=== PATIENT | male | born 1970 | race Hispanic/Latino ===

== ENCOUNTER 2021-08-07 08:24 | Emergency (ER) | payer OTHER ==
[~2021-08-07] VITALS: Ht 177.8 cm; Wt 90.7 kg
[2021-08-07] MEDS ORDERED: CASIRIVIMAB/IMDEVIMAB 10 ML in SODIUM CHLORIDE 0.9% 100 ML IV ONE (08:45)
[2021-08-07] MEDS ORDERED: TESSALON PERLE100 MG PO (08:55)
[2021-08-07] MEDS ORDERED: ONDANSETRON ODT4 MG PO (08:55)
[2021-08-07] MEDS ORDERED: IBUPROFEN600 MG PO (08:55)
[2021-08-07 10:08] VITALS: BP 121/82
== END 2021-08-07 10:11 | disposition home or self-care (01) ==
LOC: ER 08:30
DX: R06.02 Shortness of breath (principal); R05 Cough; R11.2 Nausea with vomiting, unspecified; U07.1 COVID-19
CPT/HCPCS: 99282; J7050

== ENCOUNTER 2022-04-06 14:44 | Emergency (ER) | payer OTHER ==
[~2022-04-06] VITALS: Ht 177.8 cm; Wt 90.7 kg
[~2022-04-06 14:44] MED LIST: IBUPROFEN600 MG PO; ONDANSETRON ODT4 MG PO; TESSALON PERLE100 MG PO
[2022-04-06] MEDS ORDERED: LIDOCAINE HCL 2% LOCAL 20 ML VIAL ONE (16:00)
[2022-04-06] MEDS ORDERED: KEFLEX125 MG/5 M PO (16:45)
== END 2022-04-06 16:54 | disposition home or self-care (01) ==
LOC: ER 15:47
DX: S51.811A Laceration without foreign body of right forearm, initial encounter (principal); W45.8XXA Other foreign body or object entering through skin, initial encounter; Y92.89 Other specified places as the place of occurrence of the external cause
CPT/HCPCS: 12002; 99282; J2001